=== PATIENT | female | born 1995 | race Caucasian/White ===

== ENCOUNTER 2017-02-02 15:15 | Emergency (ER) | payer OTHER ==
[2017-02-02 15:40] VITALS: BP 126/69
--- NOTE | 2017-02-02 16:33 | UC ---
Complaint Female HPI - HPI Summary HPI Summary: ONSET OF INTERMITTENT SHARP LOWER ABDOMINAL PAIN THIS MORNING AROUND 11AM. HAD SEX LAST NIGHT FOR THE FIRST TIME IN ABOUT 3 MONTHS. HAD PARAGUARD IUD PLACED IN AUGUST AND HASN'T CHECKED THE STRINGS IN 4 MONTHS. WOULD LIKE HER STRINGS CHECKED. STATES SHE IS UNABLE TO CHECK THEM HERSELF. "I JUST CAN'T DO IT". LMP 3 -4 WEEKS AGO. WHILE SITTING IN THE EXAM ROOM TODAY HER MENSES STARTED. SHE NOW THINKS MAYBE SHE OVERREACTED AND IS JUST HAVING PERIOD PAIN BUT WOULD STILL LIKE HER STRINGS CHECKED. DENIES URINARY SX. - History Of Current Complaint Chief Complaint: UCGU Stated Complaint: PERSONAL Time Seen by Provider: 02/02/17 16:11 Hx Obtained From: Patient Hx Last Menstrual Period: 3-4 wks ago Onset/Duration: Sudden Onset, Lasting Hours, Still Present Timing: Intermittent Severity Initially: Moderate Severity Currently: Moderate Pain Intensity: 3 Pain Scale Used: 0-10 Numeric Character: Sharp Aggravating Factor(s): Nothing Alleviating Factor(s): Nothing Associated Signs And Symptoms: Positive: Vaginal Bleeding/Discharge. Negative: Fever, Back Pain, Nausea, Vomiting(# Of Episodes =), Genital Swelling, Genital Blisters - Allergies/Home Medications Allergies/Adverse Reactions: Allergies Allergy/AdvReac Type Severity Reaction Status Date / Time No Known Allergies Allergy Verified 02/02/17 15:40 Home Medications: Home Medications NK [No Home Medications Reported] 02/02/17 [History Confirmed 02/02/17] PMH/Surg Hx/FS Hx/Imm Hx Previously Healthy: Yes - Surgical History Surgical History: None - Family History Known Family History: Positive: Hypertension, Diabetes - Social History Alcohol Use: Occasionally Substance Use Type: None Smoking Status (MU): Current Some Day Smoker Review of Systems Constitutional: Negative Respiratory: Negative Cardiovascular: Negative Gastrointestinal: Abdominal Pain Genitourinary: Negative All Other Systems Reviewed And Are Negative: Yes Physical Exam Triage Information Reviewed: Yes Appearance: Well-Appearing, No Pain Distress, Well-Nourished Vital Signs: Initial Vital Signs Temp 98.5 F 02/02/17 15:33 Pulse 80 02/02/17 15:33 Resp 18 02/02/17 15:33 BP 126/69 02/02/17 15:33 Pulse Ox 99 02/02/17 15:33 Vital Signs Reviewed: Yes Eyes: Positive: Conjunctiva Clear ENT: Positive: Hearing grossly normal Neck: Positive: Supple Respiratory: Positive: No respiratory distress, No accessory muscle use Cardiovascular: Positive: Pulses Normal Abdomen Description: Positive: Nontender, Soft. Negative: CVA Tenderness (R), CVA Tenderness (L), Distended, Guarding Bowel Sounds: Positive: Present Musculoskeletal: Positive: No Edema Neurological: Positive: Alert Psychological: Positive: Age Appropriate Behavior Skin: Negative: rashes UC Physical Exam Vital Signs On Initial Exam: Initial Vitals Temp Pulse Resp BP Pulse Ox 98.5 F 80 18 126/69 99 02/02/17 15:33 02/02/17 15:33 02/02/17 15:33 02/02/17 15:33 02/02/17 15:33 - Genitalia Exam Female Genitourinary: Normal External Exam, Other - UNABLE TO PERFORM SPECULUM EXAM - PT COULD NOT TOLERATE. INTERNAL EXAM DONE WITH 1 FINGER - CERVIX POSTERIOR, CLOSED, IUD STRINGS PRESENT Diagnostics - Laboratory Diagnostic Studies Completed/Ordered: URINE DIP SP. GR. 1.025, 3+ BLOOD, 2+ PROTEIN, TRACE LEUKS Complaint Female Dx - Course Course Of Treatment: URINE DIP UNREMARKABLE. IUD STRINGS CHECKED AND PRESENT. PT DECLINES STD TESTING. STATES SHE ALWAYS USES A CONDOM. WOULD PREFER TO DEFER TESTING UNTIL SHE HAS A WHOLE DAY OFF SINCE SHE DOES NOT DO WELL WITH BLOOD TESTS AND PELVIC EXAMS. - Differential Dx/Diagnosis Provider Diagnoses: DYSMENORRHEA Discharge - Discharge Plan Condition: Stable Disposition: HOME Patient Education Materials: Dysmenorrhea (ED) Referrals: [facility] [Primary Care Provider] - If Needed Additional Instructions: URINE DIP CONSISTENT WITH MENSES. SENT FOR CULTURE TO CONFIRM NO UTI. IUD STRINGS CHECKED AND PRESENT. YOUR PAIN IS LIKELY DUE TO MENSES. TAKE OTC NSAIDS (IBUPROFEN OR ALEVE) FOR DISCOMFORT. FOLLOW-UP IF NEEDED.
--- NOTE | 2017-02-04 18:40 | ED ---
Progress - Progress Note Progress Note: CALL PATIENT. UCX (-). Course/Dx - Course Course Of Treatment: URINE DIP UNREMARKABLE. IUD STRINGS CHECKED AND PRESENT. PT DECLINES STD TESTING. STATES SHE ALWAYS USES A CONDOM. WOULD PREFER TO DEFER TESTING UNTIL SHE HAS A WHOLE DAY OFF SINCE SHE DOES NOT DO WELL WITH BLOOD TESTS AND PELVIC EXAMS. - Diagnoses Provider Diagnoses: STD (female)
== END 2017-02-02 17:00 | disposition home or self-care (01) ==
LOC: UCEAST 15:15
DX: N94.6 Dysmenorrhea, unspecified (principal); R10.30 Lower abdominal pain, unspecified; Z97.5 Presence of (intrauterine) contraceptive device; Z72.0 Tobacco use
CPT/HCPCS: 81003; 87086; 99202; G0463

== ENCOUNTER 2019-08-07 21:09 | Emergency (ER) | payer OTHER ==
[2019-08-07 21:27] VITALS: BP 130/67
--- NOTE | 2019-08-07 21:55 | UC ---
Complaint Female HPI - HPI Summary HPI Summary: PATIENT THINKS SHE INSERTED A TAMPON YESTERDAY BUT HAS NOT BEEN ABLE TO RETRIEVE IT. WHEN SHE WAS TRYING TO FIND IT TODAY SHE NOTICED BRIGHT RED BLOOD ON HER FINGERS WHEN SHE REMOVED THEM. IS ON THE TAIL END OF HER PERIOD AND WAS NOT EXPECTING THE BLOOD TO BE SO BRIGHT RED SO WAS CONCERNED THAT SHE DISPLACED HER IUD. SHE DENIES ANY UNUSUAL VAGINAL DISCHARGE. NO DYSURIA. NO FEVER. NO ABDOMINAL PAIN. HAS NOT HAD SEX RECENTLY HER BOYFRIEND LIVES OUT OF TOWN. IS NOT CONCERNED ABOUT STDS OR VAGINITIS. - History Of Current Complaint Chief Complaint: UCGU Stated Complaint: PERSONAL Time Seen by Provider: 08/07/19 21:14 Hx Obtained From: Patient Hx Last Menstrual Period: 08/07/19 Severity Currently: None Pain Intensity: 0 Pain Scale Used: 0-10 Numeric Character: Not Applicable Aggravating Factor(s): Nothing Alleviating Factor(s): Nothing Associated Signs And Symptoms: Positive: Negative - Allergies/Home Medications Allergies/Adverse Reactions: Allergies Allergy/AdvReac Type Severity Reaction Status Date / Time No Known Allergies Allergy Verified 08/07/19 21:27 Home Medications: Home Medications Amphetamine/Dextroamph ER(NF) [Adderal XR (NF)] 5 mg PO DAILY 08/07/19 [History Confirmed 08/07/19] PMH/Surg Hx/FS Hx/Imm Hx Previously Healthy: Yes - Surgical History Surgical History: None - Family History Known Family History: Positive: Hypertension, Diabetes - Social History Alcohol Use: None Substance Use Type: None Smoking Status (MU): Former Smoker Review of Systems All Other Systems Reviewed And Are Negative: Yes Constitutional: Positive: Negative Skin: Positive: Negative Respiratory: Positive: Negative Cardiovascular: Positive: Negative Gastrointestinal: Positive: Negative Genitourinary: Positive: Negative, Other - CONCERNED ABOUT FB Physical Exam Triage Information Reviewed: Yes Appearance: Well-Appearing, No Pain Distress, Well-Nourished Vital Signs: Initial Vital Signs Temp 97.6 F 08/07/19 21:21 Pulse 80 08/07/19 21:21 Resp 16 08/07/19 21:21 BP 130/67 08/07/19 21:21 Pulse Ox 99 08/07/19 21:21 Vital Signs Reviewed: Yes Eyes: Positive: Conjunctiva Clear ENT: Positive: Hearing grossly normal Neck: Positive: Supple Respiratory: Positive: No respiratory distress, No accessory muscle use Cardiovascular: Positive: Pulses Normal Abdomen Description: Positive: Nontender, Soft Pelvic Exam: Positive: External Exam Normal, Speculum Exam Normal, No Cerv. Motion Tender, No Masses, Blood - SMALL AMOUNT MENSTRUAL BLOOD IN VAGINAL VAULT , Other - NO FOREIGN BODY. Negative: Discharge, Lesions Musculoskeletal: Positive: No Edema Neurological: Positive: Alert Psychological: Positive: Age Appropriate Behavior Skin: Negative: Rashes Complaint Female Dx - Course Course Of Treatment: NO TAMPON OR OTHER FOREIGN BODY FOUND IN THE VAGINA ON EXAM TODAY. IUD STRINGS VISUALIZED. NORMAL EXAM. PATIENT ADVISED TO FOLLOW-UP IF SHE DEVELOPS ANY NEW OR CONCERNING SYMPTOMS. - Differential Dx/Diagnosis Provider Diagnosis: Worried well Discharge ED - Sign-Out/Discharge Documenting (check all that apply): Patient Departure All imaging exams completed and their final reports reviewed: No Studies - Discharge Plan Condition: Stable Disposition: HOME Referrals: [facility] [Outside] - If Needed Additional Instructions: NO FOREIGN BODY FOUND ON EXAM TODAY. IUD STRINGS VISUALIZED. NO ACUTE INTERVENTION TODAY. SEEK REEVALUATION IF YOU DEVELOP FEVER, VAGINAL PAIN, IRRITATION, DISCHARGE, UNUSUAL BLEEDING OR ANY OTHER CONCERNING SYMPTOMS. CALL THE NUMBER BELOW FOR ASSISTANCE IN ESTABLISHING WITH A PCP An additional resource available to assist in finding the appropriate physician for your health care needs is [facility] ([facility]). You may contact them by calling [phone]. - Billing Disposition and Condition Condition: STABLE Disposition: Home
== END 2019-08-07 22:00 | disposition home or self-care (01) ==
LOC: UCEAST 21:09
DX: Z71.1 Person with feared health complaint in whom no diagnosis is made (principal); Z97.5 Presence of (intrauterine) contraceptive device; Z87.891 Personal history of nicotine dependence
CPT/HCPCS: 99212; G0463